=== PATIENT | male | born 1980 | race Caucasian/White ===

== ENCOUNTER → 2020-03-21 13:04 | Outpatient (CLI) | payer MEDICAID, SELFPAY ==
--- NOTE | 2020-03-21 13:09 | CT_ITS ---
PROCEDURE: CT CHEST WO CON CLINICAL INDICATION: PRURITUS,EMYEMA,BACTERIAL PERITONITIS Pruritus, empyema, persistent air leak, prior surgery with nonhealing and shortness of air COMPARISON: No exams were available for comparison TECHNIQUE: Axial images obtained with sagittal and coronal reformats. All CT scans at the facility use one or more dose reduction, viz: automated exposure control, ma/kV adjustment per patient size (including targeted exams where dose is matched to indication, i.e. head), or iterative reconstruction technique. FINDINGS: There are no previous exams available at this institution for comparison. There are few scattered small mediastinal lymph nodes. The no obvious mediastinal or hilar mass. There has been a right-sided thoracotomy which is open along the lower hemithorax on the right with resection of the right the 8th and 9th ribs laterally. The pleural spaces open to the right lateral hemithorax at the area of rib resection with underlying pleural thickening with moderate-sized right-sided pneumothorax occupying approximately 50 percent of the total lung volume. There is right upper lobe volume loss with atelectatic change with masslike consolidation/volume loss in the right lower lobe with thickening of the visceral pleura along the atelectatic lung. There is some heterogeneous density within the open pleural space on the right which may be due to packing material. There is a small amount of loculated fluid within the pleural space inferiorly and posteriorly with pleural thickening which may be related to empyema. There is a small left pleural effusion with mild left basilar atelectasis. Gynecomastia is noted. Prior TIPS procedure. There is splenomegaly. The liver has a cirrhotic configuration with some regenerating nodules in the left hepatic lobe. IMPRESSION: Some prior right-sided thoracotomy with rib resection with open wound into the pleural space on the right with associated pleural thickening, right-sided pneumothorax, and complex appearing pleural effusion on the right inferiorly which could be related to empyema Right upper lobe and right lower lobe volume loss with masslike consolidation in the right lower lobe measuring approximately 6.6 by 3.9 cm. This may may be related round atelectasis, pneumonia, or even neoplasm. Follow-up recommended. Small left-sided pleural effusion. Cirrhosis with splenomegaly, prior TIPS procedure Dictated by: Scout Mulligan MD 03/22/2020 09:33 Electronically signed by Scout Mulligan MD in [place] 03/22/2020 09:33
== END ==
PROVIDERS: PCP Thoracic Surgery (Cardiothoracic Vascular Surgery); Visit Provider Thoracic Surgery (Cardiothoracic Vascular Surgery)
DX: J86.9 Pyothorax without fistula (principal); L29.9 Pruritus, unspecified; K65.2 Spontaneous bacterial peritonitis; J93.82 Other air leak
CPT/HCPCS: 71250

== ENCOUNTER → 2020-05-08 13:31 | Outpatient (POV) | payer MEDICAID, SELFPAY ==
[2020-05-08 14:27] VITALS: BP 145/77; PULSE 81; RESP 18; O2SAT 98; BMI 23.1
--- NOTE | 2020-05-08 16:17 | HMH.PMCON ---
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 I discussed with him that we do not prescribe oral narcotic medication here he understands. I did give him information in regards to other clinics that do provide this service. He has been instructed to call the office if he has any issues. Dr. Romero has reviewed this note and agrees with this plan of care. This note was dictated using voice recognition software and may contain errors or omissions HPI - Data of Consult Consult date: 05/08/20 Requesting Physician: Nusrat Adams APRN Primary Care Provider: Referral Provider, MD - Consult Narrative Reason for consult: Left intercostal neuralgia History of present illness: Mr. Perez is a 40 year old male who presents today for consultation in regards to right intercostal neuralgia. Patient had right-sided empyema and had it drained. In the process he developed an infection and a nonhealing wound. He rates his pain a 5 out of 10. Patient has a history of cirrhosis hepatitis B and drug use. Patient still has a open wound at this time. He is currently awaiting plastic surgeon consultation for revision. Patient is here for oral narcotic medications. I discussed with him that we would not be doing that due to our policy. I did give him some names of some clinics that do medication management. CC: Nusrat Adams APRN [facility] History I have reviewed the patient's past medical history: Yes Medical History: Reports:: Hypertension Denies:: Cancer, Diabetes Mellitus Type 1, Diabetes Mellitus Type 2, MRSA *Have you ever received a pneumonia vaccine?: Yes *Have you received a flu vaccine this season?: Yes Amputation: No Fractures: No - *Social History Smoking Status: Current every day smoker Tobacco Type: cigarettes # Packs/Day (cigarettes): 1 Alcohol Intake: never *Occupational Status:: other Housing: house *Travel in the last 8 weeks: None Family Hx:: Unable to obtain Review of Systems - Review of Systems ROS General: no recent weight change, no fever, no sleep disturbances Respiratory: no cough, no shortness of air, no recurring pulmonary infections Cardiovascular/Peripheral Vascular: No chest pain, No palpitations, no edema, no shortness of breath. Gastrointestinal: no new onset incontinence, normal bowel movements reported Genitourinary: no new onset incontinence Musculoskeletal: Right chest wall pain Psychiatric: normal mood/ affect, Neurological: [denies new onset weakness in extremities], [denies new onset balance issues] Meds Home Medications Medication Instructions Recorded Confirmed Type Gabapentin 600 mg PO TID 05/08/20 05/08/20 History Lactulose [Lactulose 10gm/15ml 10 ml PO DAILY 05/08/20 05/08/20 History Oral Soln] hydrOXYzine HCL [Hydroxyzine HCl] 50 mg PO DAILY 05/08/20 05/08/20 History levoFLOXacin [Levofloxacin 500MG 500 mg PO DAILY 05/08/20 05/08/20 History Tab] Allergies Allergy/AdvReac Type Severity Reaction Status Date / Time methadone Allergy Verified 05/08/20 14:38 Penicillins Allergy Verified 05/08/20 14:38 tramadol [From Ultram] Allergy Verified 05/08/20 14:38 Objective Vital signs: Pulse Resp BP Pulse Ox 81 18 145/77 H 98 05/08/20 14:27 05/08/20 14:27 05/08/20 14:27 05/08/20 14:27 Narrative: Physical Exam General: Alert and oriented x3, no acute distress, pleasant and cooperative, [on room air] Lungs: Resps E/U, Symmetrical chest expansion, Eyes: PERRL Musculoskeletal: Flexion and extension
== END ==
PROVIDERS: Visit Provider Clinical Nurse Specialist Family Health
DX: M79.18 Myalgia, other site (principal); G58.8 Other specified mononeuropathies
CPT/HCPCS: 99202

== ENCOUNTER → 2021-10-22 18:04 | Outpatient (CLI) | payer MEDICAID, SELFPAY ==
[2021-10-22 19:59] LABS: Basophils % 0.5 % (0.1-2.0); Eosinophils # 0.2 K/mm3 (0.0-0.4); Eosinophils % 3.5 % (0.1-12.0); Hemoglobin 12.6 g/dL (14.1-18.0); Lymphocytes # 1.2 K/mm3 (0.7-4.5); Lymphocytes % 22.9 % (10-50); Mean Corpuscular HGB Conc 33.2 g/dL (31.8-35.4); Mean Corpuscular Hemoglobin 27.3 pg (27.0-31.2); Mean Corpuscular Volume 82.3 fl (80-94); Mean Platelet Volume 7.9 fl (7.4-10.4); Monocytes # 0.4 K/mm3 (0.1-1.0); Monocytes % 7.1 % (1.7-9.3); Neutrophils # 3.3 K/mm3 (1.8-7.8); Platelet Count 180 K/mm3 (142-424); Red Blood Count 4.61 M/mm3 (4.60-6.20); Red Cell Distribution Width 16.6 % (11.5-17.5)
[2021-10-22 20:03] LABS: Alanine Aminotransferase 26 U/L (12-78); Albumin Level 3.5 g/dl (3.5-5.0); Albumin/Globulin Ratio 0.8 (1.1-1.8); Alkaline Phosphatase 209 U/L (38-126); Anion Gap 9.1 mEq/L (5-15); Aspartate Amino Transferase 108 U/L (17-59); Bilirubin,Total 2.1 mg/dl (0.2-1.3); Blood Urea Nitrogen 5 mg/dl (9-20); Calcium 9.4 mg/dl (8.4-10.2); Carbon Dioxide 27 mmol/L (22.0-30.0); Chloride 105 mmol/L (98-107); Chol/HDL Ratio 3.3 (1-3.5); Cholesterol 102 mg/dl (140-200); Estimated Glomerular Filt Rate 124 ml/min (>60); GFR (African American) 150 ML/MIN (>60); Globulin 4.3 g/dL (1.3-3.2); Glucose 130 mg/dl (74-100); HDL Cholesterol 31 mg/dl (40-60); Potassium 3.1 mmoL/L (3.5-5.1); Sodium 138 mmol/L (136-145); Total Protein,Serum 7.8 g/dl (6.3-8.2); Triglycerides 95 mg/dl (30-150); VLDL Cholesterol 19 mg/dL (0-40)
[2021-10-22 20:14] LABS: Direct LDL Cholesterol 51.12 mg/dL (100-129)
[2021-10-22 20:18] LABS: Free T4 (Free Thyroxine) 2.07 ng/dl (0.78-2.19)
[2021-10-22 20:33] LABS: Thyroid Stimulating Hormone 5.08 uIU/mL (0.465-4.68)
[2021-10-22 20:37] LABS: Hemoglobin A1C 5.1 % (4.0-6.0)
[2021-10-22 20:59] LABS: Amphetamine/Metha Screen,Urine Negative ng/ml (<1000)
[2021-10-22 21:00] LABS: Barbiturates Screen,Urine Negative ng/ml (<200); Benzodiazepines Screen,Urine Negative ng/ml (<200)
[2021-10-22 21:01] LABS: Cannabinoid Screen,Urine Negative ng/ml (<50); Cocaine Screen,Urine Negative ng/ml (<300)
[2021-10-22 21:02] LABS: Methadone Screen,Urine Negative ng/ml (<300)
[2021-10-22 21:03] LABS: Opiate Screen,Urine Negative ng/ml (<300); Phencyclidine Screen,Urine Negative ng/ml (<25)
== END ==
PROVIDERS: Visit Provider Emergency Medicine
DX: K74.60 Unspecified cirrhosis of liver (principal); M79.18 Myalgia, other site; Z79.899 Other long term (current) drug therapy
CPT/HCPCS: 80053; 80061; 80305; 83036; 84439; 84443; 85025

== ENCOUNTER 2021-12-06 09:22 | Emergency (ER) | payer MEDICAID, SELFPAY ==
[2021-12-06 09:24] VITALS: BP 160/86; PULSE 80; RESP 20; TEMP 36.5; O2SAT 99; BMI 29.8
--- NOTE | 2021-12-06 09:39 | XR_ITS ---
FINAL REPORT CLINICAL HISTORY: cough hx of rt lung surgery smoker FINDINGS: SINGLE VIEW CHEST. There is mild cardiomegaly. The mediastinum is unremarkable. There is volume loss throughout the right hemithorax. There is abnormal pleural thickening along the lateral portion of the right hemithorax measuring up to 3.7 cm. Small endobronchial stents are present in the right perihilar region. The left lung is clear. There is no pneumothorax. IMPRESSION: Volume loss throughout the right hemithorax. Up to 3.7 cm of pleural thickening along the lateral portion of the right hemithorax. Reviewed, Interpreted and Dictated by Silvano Edmond MD Transcribed by Naye Giordano Authenticated by Silvano Edmond MD on 12/06/2021 10:40:08 AM [facility]
--- NOTE | 2021-12-06 10:09 | HMH.EDGENADL ---
ED Disposition Clinical Impression: Exposure to COVID-19 virus, Atelectasis of right lung Disposition: Home, Self-Care Condition on Discharge: Fair Additional Instructions: You have been evaluated for exposure to COVID-19. Chest x-ray looks similar to chest CT performed within the last year. No new pneumonia. Please follow-up with your primary care doctor and/or advertising statistical clerk. Return to the emergency department for any new or worsening symptoms. Referrals: Jaleel Hernandez MD [Primary Care Provider] - Time of Disposition: 11:51 - Critical Care Critical Care Time: No Attestation: On 12/06/21, the high probability of a clinically significant, sudden or life threatening deterioration of the following system(s) required my full and direct attention, intervention and personal management. The time I documented below is in addition to time spent performing reported procedures but includes the following listed in this critical care notation. Medical Decision Making - Medical Records Medical records reviewed: Yes: I reviewed the patient's medical records. - [place] Inquiry Pt receiving controlled substance: No Vital Signs: 12/06/21 09:24 12/06/21 10:36 12/06/21 11:00 Temperature 97.7 F Temperature Source Oral Pulse Rate 67 72 Pulse Rate [Left Radial] 80 Respiratory Rate 20 Blood Pressure 145/60 H Blood Pressure [Right Arm] 160/86 H Blood Pressure Mean [Right Arm] 110 Blood Pressure Source [Right Arm] Automatic Cuff Blood Pressure Position [Right Arm] Sitting 02 Sat by Pulse Oximetry 99 99 96 Oxygen Delivery Method Nasal Cannula Oxygen Flow Rate (LPM) 3 Orders (Tests/Meds): ORDERS Category Date Time Status Covid-19 Nasal PCR ([facility]) Routine Lab 12/06/21 08:30 Received Medical Decision Narrative: In summary this is a 41-year-old male with history of cirrhosis, status post TIPS and right sided VATS presenting to the emergency department with cough, Covid concern. Patient clinically stable on arrival. Vital signs within normal limits. No tachycardia. No hypoxia. Concern for COVID-19, viral upper respiratory infection, focal pneumonia. Will obtain Covid testing and chest x-ray. Chest x-ray shows postsurgical changes in the right hemithorax. No focal pneumonia. Chest x-ray abnormal findings are consistent with chest CT within the last year. Patient remained stable with oxygen saturation of 99% on his home 1.5 L. Counseled him to follow-up with his advertising statistical clerk. Will be called with Covid testing results. Given return precautions. Stable for discharge. General Adult HPI - General Chief complaint: Shortness of Breath/Dyspnea Stated complaint: covid exposure, SOA Time Seen by Provider: 12/06/21 09:39 Mode of Arrival: Ambulatory Source of Information: Patient Limitations: No Limitations Description of Symptoms (Recalled from ER Triage Doc. by RN): c/o feeling more soa than normal , really anxious about having covid due to his exposure and having his lung problems he has. - History of Present Illness HPI narrative: 41-year-old male presenting to the emergency department with cough, shortness of breath, exposure to COVID-19. The last few days he has had occasional cough that is dry and nonproductive. He has been using 3 L by nasal cannula to maintain oxygen saturations greater than 95%. He usually uses 1-1/2 L. His grandfather tested positive for COVID-19 yesterday. He is concerned for Covid infection. Wants to get checked. Shortness of breath is described as mild. Not with exertion. No chest pain. Denies fevers, chills, nausea, vomiting. No abdominal pain. He has a history of cirrhosis of the liver. Had a TIPS procedure. Previously had pleural fluid drained from his chest. No orthopnea. No lower extremity swelling. No history of DVT or PE. - Related Data Home Medications Medication Instructions Recorded Confirmed Gabapentin 600 mg PO TID 05/08/20
[2021-12-06 10:36] VITALS: PULSE 67; O2SAT 99
[2021-12-06 11:00] VITALS: BP 145/60; PULSE 72; O2SAT 96
[2021-12-06 12:12] VITALS: BP 146/60; PULSE 72; RESP 18; TEMP 36.5; O2SAT 96
== END 2021-12-06 12:13 | disposition home or self-care (01) ==
PROVIDERS: Emergency Provider Emergency Medicine; PCP Emergency Medicine
DX: J98.11 Atelectasis (principal); K74.60 Unspecified cirrhosis of liver; I10 Essential (primary) hypertension; F17.210 Nicotine dependence, cigarettes, uncomplicated
CPT/HCPCS: 71045; 99282; C9803; U0003; U0005

== ENCOUNTER 2025-02-17 14:06 | Outpatient (RCR) | payer MEDICAID, SELFPAY | END 2025-02-17 23:59 | disposition home or self-care (01) | LOC: PT 14:06 | PROVIDERS: PCP Emergency Medicine; Visit Provider Internal Medicine | DX: R53.1 Weakness (principal) | CPT/HCPCS: 97163 ==

== ENCOUNTER 2025-07-21 14:11 | Outpatient (RCR) | payer MEDICAID, SELFPAY | END 2025-08-09 08:00 | disposition home or self-care (01) | LOC: PULREHAB 14:11 | PROVIDERS: Visit Provider Nurse Practitioner Family | DX: Z53.8 Procedure and treatment not carried out for other reasons (principal) ==